=== PATIENT | female | born 1960 | race African-American/Black ===

== ENCOUNTER 2018-01-29 19:03 | Emergency (ER) | payer OTHER ==
[2018-01-29 19:18] VITALS: BP 131/45; PULSE 96; TEMP 99.1; BMI 41.0
--- NOTE | 2018-01-29 19:18 | PDOC ---
Rapid Medical Evaluation Time Seen by Provider: 01/29/18 19:15 Medical Evaluation: Allergies Allergy/AdvReac Type Severity Reaction Status Date / Time doxycycline Allergy Verified 04/06/16 18:28 erythromycin base Allergy Verified 04/06/16 18:28 01/29/18 19:15 I have performed a brief in-person evaluation of this patient. The patient presents with a chief complaint of: cough, sore throat, headache x2 days Pertinent physical exam findings: EOMI. PERRLA. Lungs CTAB. Tonsils absent I have ordered the following: cxr The patient will proceed to the ED for further evaluation. Discharge Disposition - Diagnosis Pharyngitis - Referrals - Patient Instructions - Post Discharge Activity
--- NOTE | 2018-01-29 20:02 | PDOC ---
History of Present Illness - General Chief Complaint: Cold Symptoms Stated Complaint: HEAD PAIN Time Seen by Provider: 01/29/18 19:15 History Source: Patient Exam Limitations: No Limitations - History of Present Illness Initial Comments: 01/29/18 19:56 57-year-old female presents to the ED with complaints of sore throat secondary to dry hacking cough, nasal congestion, and subjective chills. 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 Patient denies smoking history difficulty swallowing, abdominal pain, diarrhea, or recent change in diet. Timing/Duration: reports: yesterday Severity: reports: moderate Possible Cause: Yes: no prior episodes Modifying Factors: improves with: coughing Associated Symptoms: reports: cough, fever/chills, sinus infection, sore throat Past History - Travel Traveled outside of the country in the last 30 days: No - Past Medical History Allergies/Adverse Reactions: Allergies Allergy/AdvReac Type Severity Reaction Status Date / Time doxycycline Allergy Verified 01/29/18 19:18 erythromycin base Allergy Verified 01/29/18 19:18 ibuprofen Allergy Verified 01/29/18 19:18 Tetracyclines Allergy Verified 01/29/18 19:18 Home Medications: Ambulatory Orders Losartan Potassium 100 mg PO ASDIR 01/29/18 Simvastatin 10 mg PO ASDIR 01/29/18 Anemia: Yes (blood transfussion) COPD: No HTN: Yes (no meds) Hypercholesterolemia: Yes Thyroid Disease: Yes - Surgical History Abdominal Surgery: Yes (hernia as a child) - Suicide/Smoking/Psychosocial Hx Smoking History: Never smoked Have you smoked in the past 12 months: No Hx Alcohol Use: No Drug/Substance Use Hx: No Substance Use Type: None Patient Lives Alone: No Review of Systems - Review of Systems Able to Perform ROS?: No Constitutional: Yes: Chills HEENTM: Yes: Throat Pain Respiratory: Yes: Cough Cardiac (ROS): No: Symptoms Reported ABD/GI: No: Symptoms Reported : No: Symptoms Reported Musculoskeletal: No: Symptoms Reported Integumentary: No: Symptoms Reported Neurological: No: Symptoms reported *Physical Exam - Vital Signs Last Vital Signs Temp Pulse Resp BP Pulse Ox 99.1 F 96 H 18 131/45 99 01/29/18 19:14 01/29/18 19:14 01/29/18 19:14 01/29/18 19:14 01/29/18 19:14 - Physical Exam General Appearance: Yes: Nourished, Appropriately Dressed. No: Apparent Distress HEENT: positive: EOMI, BRENDA, TMs Normal, Pharynx Normal, Nasal Congestion, Rhinorrhea (clear). negative: Pale Conjunctivae Neck: positive: Normal Thyroid, Supple Respiratory/Chest: positive: Lungs Clear, Normal Breath Sounds. negative: Respiratory Distress, Accessory Muscle Use Cardiovascular: positive: Regular Rhythm, Regular Rate. negative: Murmur Integumentary: positive: Normal Color, Warm, Moist Neurologic: positive: Motor Strength 5/5 (ambulatory) Medical Decision Making - Medical Decision Making 01/29/18 20:00 Patient with URI symptoms and had a chest x-ray done which is negative for acute findings. Patient with dry hacking cough. Patient will be given azithromycin for treatment of bronchitis along with Claritin for decongestion. *DC/Admit/Observation/Transfer Diagnosis at time of Disposition: Pharyngitis, URI (upper respiratory infection) - Discharge Dispostion Disposition: HOME Condition at time of disposition: Good - Referrals Referrals: Levon Billings MD [Primary Care Provider] - - Patient Instructions Printed Discharge Instructions: DI for Acute Bronchitis Additional Instructions: Please stay well-hydrated drinking plenty of fluids. Please take medication as prescribed. May take Motrin or Tylenol for discomfort. - Post Discharge Activity
== END 2018-01-29 20:03 | disposition home or self-care (01) ==
LOC: JERFT 19:03
DX: J02.9 Acute pharyngitis, unspecified (principal); J06.9 Acute upper respiratory infection, unspecified; I10 Essential (primary) hypertension; E78.00 Pure hypercholesterolemia, unspecified; D64.9 Anemia, unspecified; E07.9 Disorder of thyroid, unspecified
CPT/HCPCS: 71046-TC-FY; 99281-25

== ENCOUNTER 2018-07-08 06:59 | Emergency (ER) | payer OTHER ==
[2018-07-08 07:23] VITALS: BP 158/82; PULSE 95; TEMP 97.6; BMI 40.6
[2018-07-08] MEDS ORDERED: ACETAMINOPHEN 650 MG/20.3 ML ORAL SOLUTION (CUPS) PO ONE (07:48)
[2018-07-08] MEDS ORDERED: ACETAMINOPHEN 325 MG TABLET (FP) PO ONE (07:52)
--- NOTE | 2018-07-08 07:55 | PDOC ---
History of Present Illness - General History Source: Patient Exam Limitations: No Limitations - History of Present Illness Initial Comments: 07/08/18 08:18 Patient is a 58-year-old female who presents to the emergency department today with right foot pain. Patient states her pain started last night after getting off work. Patient works as a BUSINESS EDUCATION TEACHER. She states that the pain is right below her third toe on the sole of the foot. Denies trauma or falling. She admits to having foot fungus. Denies fevers, chills, numbness and tingling to the extremity, weakness to the extremity. <Lori Ochoa - Last Filed: 07/09/18 08:38> <Dinorah Brand - Last Filed: 07/10/18 07:32> - General Chief Complaint: Pain Stated Complaint: R FOOT PAIN Time Seen by Provider: 07/08/18 07:25 Past History - Past Medical History Anemia: Yes (blood transfussion) COPD: No HTN: Yes (no meds) Hypercholesterolemia: Yes Thyroid Disease: Yes - Surgical History Abdominal Surgery: Yes (hernia as a child) - Suicide/Smoking/Psychosocial Hx Smoking History: Never smoked Have you smoked in the past 12 months: No Hx Alcohol Use: No Drug/Substance Use Hx: No Substance Use Type: None <Lori Ochoa - Last Filed: 07/09/18 08:38> <Dinorah Brand - Last Filed: 07/10/18 07:32> - Past Medical History Allergies/Adverse Reactions: Allergies Allergy/AdvReac Type Severity Reaction Status Date / Time amoxicillin Allergy Verified 07/08/18 07:44 doxycycline Allergy Verified 01/29/18 19:18 erythromycin base Allergy Verified 01/29/18 19:18 ibuprofen Allergy Verified 01/29/18 19:18 Tetracyclines Allergy Verified 01/29/18 19:18 Home Medications: Ambulatory Orders Acetaminophen [Tylenol] 650 mg PO Q4H #30 capsule 07/08/18 Aspirin [ASA -] 81 mg PO DAILY 07/08/18 Atorvastatin Calcium [Lipitor] 10 mg PO HS 07/08/18 Cholecalciferol (Vitamin D3) [Vitamin D3 -] 400 unit PO DAILY 07/08/18 Lisinopril/Hydrochlorothiazide [Lisinopril-Hctz 10-12.5 mg Tab] 1 each PO DAILY 07/08/18 Review of Systems - Review of Systems Able to Perform ROS?: Yes Comments:: 07/08/18 07:48 CONSTITUTIONAL: Absent: fever, chills, diaphoresis, generalized weakness, malaise, loss of appetite HEENT: Absent: rhinorrhea, nasal congestion, throat pain, throat swelling, difficulty swallowing, mouth swelling, ear pain, eye pain, visual Changes CARDIOVASCULAR: Absent: chest pain, loss of consciousness, palpitations, irregular heart rate, peripheral edema RESPIRATORY: Absent: cough, shortness of breath, dyspnea with exertion, orthopnea, wheezing, stridor, hemoptysis GASTROINTESTINAL: Absent: abdominal pain, abdominal distension, nausea, vomiting, diarrhea, constipation, melena, hematochezia GENITOURINARY: Absent: dysuria, frequency, urgency, hesitancy, hematuria, flank pain, genital pain MUSCULOSKELETAL: Present: R foot pain Absent: myalgia, arthralgia, joint swelling SKIN: Absent: rash, itching, pallor HEMATOLOGIC/IMMUNOLOGIC: Absent: easy bleeding, easy bruising, lymphadenopathy, frequent infections ENDOCRINE: Absent: unexplained weight gain, unexplained weight loss, heat intolerance, cold intolerance NEUROLOGIC: Absent: headache, focal weakness or paresthesias, dizziness, unsteady gait, seizure, mental status changes, bladder or bowel incontinence PSYCHIATRIC: Absent: anxiety, depression, suicidal or homicidal ideation, hallucinations. Is the patient limited [place] proficient: No <Lori Ochoa - Last Filed: 07/09/18 08:38> *Physical Exam - Vital Signs Last Vital Signs Temp Pulse Resp BP Pulse Ox 97.6 F 95 H 16 158/82 98 07/08/18 07:22 07/08/18 07:22 07/08/18 07:22 07/08/18 07:22 07/08/18 07:22 - Physical Exam Comments: 07/08/18 07:48 GENERAL: Well developed, well nourished. Awake and alert. No acute distress. MUSCULOSKELETAL TTP to the base of the 3rd R toe on the sole of the foot. No obvious bony tenderness. pt able to fully flex and extend all toes. No ttp of the R arch. Normal range of motion at all joints. No bony deformities or tenderness. No CVA tenderness. EXTREMITIES: No cyanosis. No clubbing. No edema. No calf tenderness. SKIN: Fungus present to the R foot between all toes and affecting the toe nails as well. No obvious erythema. Warm and dry. Normal capillary refill. No jaundice. NEUROLOGICAL: Alert, awake, appropriate. Cranial nerves 2-12 intact. No deficits to light touch and temperature in face, upper extremities and lower extremities. No motor deficits in the in face, upper extremities and lower extremities. Normoreflexic in the upper and lower extremities. Normal speech. Toes are down- going bilaterally. Gait is normal without ataxia. PSYCHIATRIC: Cooperative. Good eye contact. Appropriate mood and affect. <Lori Ochoa - Last Filed: 07/09/18 08:38> - Vital Signs Last Vital Signs Temp Pulse Resp BP Pulse Ox 97.6 F 95 H 16 158/82 98 07/08/18 07:22 07/08/18 07:22 07/08/18 07:22 07/08/18 07:22 07/08/18 07:22 <Dinorah Brand - Last Filed: 07/10/18 07:32> Moderate Sedation - Procedure Monitoring Vital Signs: Procedure Monitoring Vital Signs Temperature 97.6 F 07/08/18 07:22 Pulse Rate 95 H 07/08/18 07:22 Respiratory Rate 16 07/08/18 07:22 Blood Pressure 158/82 07/08/18 07:22 O2 Sat by Pulse Oximetry (%) 98 07/08/18 07:22 <Lori Ochoa - Last Filed: 07/09/18 08:38> - Procedure Monitoring Vital Signs: Procedure Monitoring Vital Signs Temperature 97.6 F 07/08/18 07:22 Pulse Rate 95 H 07/08/18 07:22 Respiratory Rate 16 07/08/18 07:22 Blood Pressure 158/82 07/08/18 07:22 O2 Sat by Pulse Oximetry (%) 98 07/08/18 07:22 <Dinorah Brand - Last Filed: 07/10/18 07:32> ED Treatment Course - RADIOLOGY Radiology Studies Ordered: Category Date Time Status FOOT-RIGHT [RAD] Stat Radiology 07/08/18 07:25 Completed - Medications Given in the ED: ED Medications Discontinued Medications Generic Name Dose Route Start Last Admin Trade Name Freq PRN Reason Stop Dose Admin Acetaminophen 650 mg 07/08/18 07:48 07/08/18 08:49 Tylenol Oral Solution - PO 07/08/18 07:49 Not Given ONCE ONE Acetaminophen 650 mg 07/08/18 07:52 07/08/18 08:49 Tylenol - PO 07/08/18 07:53 650 mg ONCE ONE Administration <Dinorah Brand - Last Filed: 07/10/18 07:32> Medical Decision Making - Medical Decision Making 07/08/18 10:38 Pt presents with one day of R foot pain. Pt denies trauma -x-ray is negative for fracture; no deformity on exam -Pt with athletes foot -dc home with Tylenol and podiatry follow up -I discussed the physical exam findings, ancillary test results and final diagnoses with the patient. I answered all of the patient's questions. The patient was satisfied with the care received and felt comfortable with the discharge plan and treatment plan. The Patient agrees to follow up with the primary care physician/specialist within 24-72 hours. Return precautions were given. <Lori Ochoa - Last Filed: 07/09/18 08:38> - Medical Decision Making The patient was seen and evaluated in conjunction with midlevel provider under my direct supervision, ancillary studies were reviewed. I agree with the plan as outlined by MYRANDA Ochoa. HPI as outlined. 07/10/18 07:32 <Dinorah Brand - Last Filed: 07/10/18 07:32> *DC/Admit/Observation/Transfer - Discharge Dispostion Decision to Admit order: No <Lori Ochoa - Last Filed: 07/09/18 08:38> <Dinorah Brand - Last Filed: 07/10/18 07:32> Diagnosis at time of Disposition: Foot pain, right - Discharge Dispostion Disposition: HOME Condition at time of disposition: Stable - Prescriptions Prescriptions: Acetaminophen [Tylenol] 650 mg PO Q4H #30 capsule - Referrals Referrals: Levon Billings MD [Primary Care Provider] - Abby Cadena DPM [Staff Physician] - Juventino Hills MD [Staff Physician] - - Patient Instructions Printed Discharge Instructions: DI for Foot Pain Additional Instructions: You were evaluated for your foot pain today. Your x-ray was negative for broken bones. Review to have foot fungus which may be a cause of your pain. This could also be a nerve problem. Please follow-up with a public weigher. 2 referrals have been provided. Please take Tylenol 650 mg every 4 hours as needed for pain. Do not take more than 4000 mg a day. Follow-up with her primary care doctor this week. Return to the emergency department if you have any new or worsening symptoms. - Post Discharge Activity Forms/Work/School Notes: Back to Work
[2018-07-08] MEDS ORDERED: ACETAMINOPHEN 325 MG TABLET (FP) ONE (08:02)
== END 2018-07-08 10:02 | disposition home or self-care (01) ==
LOC: JER 06:59
DX: B35.3 Tinea pedis (principal); I10 Essential (primary) hypertension; E78.00 Pure hypercholesterolemia, unspecified; D64.9 Anemia, unspecified; E07.9 Disorder of thyroid, unspecified
CPT/HCPCS: 73630-TC-RT-FY; 99282-25

== ENCOUNTER 2019-08-03 13:53 | Emergency (ER) | payer OTHER ==
[2019-08-03 14:27] VITALS: TEMP 97.6; BMI 42.5
[2019-08-03] MEDS ORDERED: ACETAMINOPHEN 325 MG TABLET (FP) PO ONE (14:40)
[2019-08-03] MEDS ORDERED: LIDOCAINE 5% TOPICAL PATCH TP ONE (14:41)
--- NOTE | 2019-08-03 14:43 | PDOC ---
History of Present Illness - General Chief Complaint: Head/Neck problem Stated Complaint: FALL Time Seen by Provider: 08/03/19 14:00 - History of Present Illness Initial Comments: 08/03/19 14:43 59 yo F PMH HTN, HLD, athlete's foot, presenting after fall. Patient states that she was walking around [employer], tripped on a crack in the pavement, and fell. States that she caught herself with her hands, hit her L knee, then hit her R head. Denies LOC. Further denies preceding presyncopal symptoms, dizziness, lightheadedness, CP, SOB, abdominal pain, fevers/chills. Complains of mild L knee pain and point tenderness of R head. Further complains about pain in her R neck muscles, exacerbated by looking to the right. Notes that she has had welling in her R middle finger for multiple years. States that she has had chronic intermittent visual issues over the past year with occasional blurry spots in her L eye. Did not have this preceding the fall and does not have it now. Has not seen anyone for this. Past History - Past Medical History Allergies/Adverse Reactions: Allergies Allergy/AdvReac Type Severity Reaction Status Date / Time amoxicillin Allergy Verified 07/08/18 07:44 doxycycline Allergy Verified 01/29/18 19:18 erythromycin base Allergy Verified 01/29/18 19:18 ibuprofen Allergy Verified 01/29/18 19:18 Tetracyclines Allergy Verified 01/29/18 19:18 Home Medications: Ambulatory Orders Acetaminophen [Tylenol] 650 mg PO Q4H #30 capsule 07/08/18 Aspirin [ASA -] 81 mg PO DAILY 07/08/18 Atorvastatin Calcium [Lipitor] 10 mg PO HS 07/08/18 Cholecalciferol (Vitamin D3) [Vitamin D3 -] 400 unit PO DAILY 07/08/18 Lisinopril/Hydrochlorothiazide [Lisinopril-Hctz 10-12.5 mg Tab] 1 each PO DAILY 07/08/18 Anemia: Yes (blood transfussion) COPD: No HTN: Yes (no meds) Hypercholesterolemia: Yes Thyroid Disease: Yes - Surgical History Abdominal Surgery: Yes (hernia as a child) - Immunization History Immunization Up to Date: Yes - Psycho Social/Smoking Cessation Hx Smoking History: Never smoked Have you smoked in the past 12 months: No Hx Alcohol Use: No Drug/Substance Use Hx: No Substance Use Type: None Review of Systems - Review of Systems Comments:: 08/03/19 14:48 GENERAL/CONSTITUTIONAL: No fever or chills. No weakness. HEAD, EYES, EARS, NOSE AND THROAT: No change in vision. No ear pain or discharge. No sore throat. CARDIOVASCULAR: No chest pain or shortness of breath. RESPIRATORY: No cough, wheezing, or hemoptysis. GASTROINTESTINAL: No nausea, vomiting, diarrhea or constipation. GENITOURINARY: No dysuria, frequency, or change in urination. MUSCULOSKELETAL: No joint or muscle swelling or pain. R neck pain. No back pain. SKIN: No rash NEUROLOGIC: No headache, vertigo, loss of consciousness, or change in strength/ sensation. ENDOCRINE: No increased thirst. No abnormal weight change. HEMATOLOGIC/LYMPHATIC: No anemia, easy bleeding, or history of blood clots. ALLERGIC/IMMUNOLOGIC: No hives or skin allergy *Physical Exam - Vital Signs Last Vital Signs Temp Pulse Resp BP Pulse Ox 97.6 F 80 18 150/79 98 08/03/19 13:58 08/03/19 13:58 08/03/19 13:58 08/03/19 13:58 08/03/19 13:58 - Physical Exam 08/03/19 14:49 Gen: well-developed, well-nourished, NAD Neuro: AAOX4, CN II-XII intact, FTN intact, EOMI, PERRLA, 5/5 strength, SILT HEENT: normocephalic, dry mucous membranes. Point tenderness along anterior R parietal skull without laceration, abrasion, or swelling. Neck: trachea midline, supple, R neck muscular tenderness CV: regular rate, regular rhythm, no murmurs, rubs, or gallops Pulm: CTA b/l, no wheezing Abd: soft, non-distended, non-tender MSK: full ROM, intact pulses Extr: no edema, no deformities. Noticeable edema in R middle finger between PIP and DIP. Skin: warm, dry. Mild abrasions above L knee. Visual Acuity L eye: 20/25 R eye: 20/30 Medical Decision Making - Medical Decision Making 08/03/19 14:50 Patient presenting with history consistent with mechanical fall. No neurological symptoms, no LOC. Low concern for brain bleed or fracture. - Tylenol 650mg - Lidoderm patch - reassess, likely dc for further outpatient management. Rec optho f/u. 08/03/19 16:33 CT head with R scalp swelling, otherwise unremarkable. Discharge - Discharge Information Problems reviewed: Yes Clinical Impression/Diagnosis: Fall Qualifiers: Encounter type: initial encounter Qualified Code(s): W19.XXXA - Unspecified fall, initial encounter Neck muscle strain Qualifiers: Encounter type: initial encounter Qualified Code(s): S16.1XXA - Strain of muscle, fascia and tendon at neck level, initial encounter - Follow up/Referral Referrals: Levon Billings MD [Primary Care Provider] - Stevan Perkins MD [Staff Physician] - - Patient Discharge Instructions Patient Printed Discharge Instructions: How to Prevent Falls Additional Instructions: You were seen after tripping and falling. Your CT scan showed some local right scalp swelling, but no other acute issues. However, you did tell us that you have been experiencing occasional blurry vision for the past year. We recommend that you see an data review specialist; a number is included in your paperwork. Follow up with your primary care doctor within one week. Return to the ED if you develop worsening symptoms. - Post Discharge Activity Work/Back to School Note: Back to Work
[2019-08-03] MEDS ORDERED: ACETAMINOPHEN 325 MG TABLET (FP) ONE (15:01)
[2019-08-03] MEDS ORDERED: LIDOCAINE 5% TOPICAL PATCH ONE (15:01)
--- NOTE | 2019-08-03 15:09 | PDOC ---
Documentation entered by Sonny Alejandro SCRIBE, acting as scribe for Keily Bates DO. Keily Bates DO: This documentation has been prepared by the Javon salinas Andrys, SCRIBE, under my direction and personally reviewed by me in its entirety. I confirm that the documentation accurately reflects all work, treatment, procedures, and medical decision making performed by me. Attending Attestation - Resident Resident Name: Nicolas Latif - ED Attending Attestation I have performed the following: I have examined & evaluated the patient, The case was reviewed & discussed with the resident, I agree w/resident's findings & plan, Exceptions are as noted - HPI HPI: 08/03/19 15:03 The patient is a 59 year old female with a significant past medical history of HTN, HLD, DM and anemia who presents to the ED, via EMS, who presents to the ED s/p fall earlier today. Patient states she tripped on a crack on the sidewalk when she fell and landed on her hands. She states she hit her head and left knee. Denies loss of consciousness and was able to ambulate after fall. Upon arrival to the ED, patient reports head pain that is worsened on the right alevism area. Patient has intermittent blurred vision on the right eye for a year. Denies weakness. Denies lightheadedness or weakness. Denies any other symptoms. - Physicial Exam PE: 08/03/19 15:03 Constitutional: + Obese. Awake, alert, oriented. No acute distress. Head: Normocephalic. No external signs of trauma. Eyes: PERRLA. EOMI. Conjunctivae are not pale. ENT: Mucous membranes are moist and intact. Posterior pharynx without exudates or erythema. Uvula midline. Neck: Supple. Full ROM. No lymphadenopathy. No middle tenderness. Cardiovascular: Regular rate. Regular rhythm. S1, S2 regular. Distal pulses are 2+ and symmetric. Pulmonary/Chest: No evidence of respiratory distress. Clear to auscultation bilaterally No wheezing, rales or rhonchi. Abdominal: Soft and non-distended. There is no tenderness. No rebound, guarding or rigidity. No organomegaly. No palpable masses. Good bowel sounds. Back: No CVA tenderness. Musculoskeletal: + Right middle sigit has a chronic fluid collection which plastic surgeon is meant to drain. No edema. No cyanosis. No clubbing. Full range of motion in all extremities. Nocalf tenderness. Radial/pedal pulses are intact and 2+ bilaterally Skin: Skin is warm and dry. No petechiae. No purpura. Neurological: Alert and oriented to person, place, and time. Cranial nerves II -XII are grossly intact. Normal speech. Strength is grossly symmetric. No sensory deficits. Psychiatric: Good eye contact. Normal interaction, affect and behavior. - Medical Decision Making 08/03/19 15:05 a/p: 59yo female with fall - head injury and intermittent blurred vision -pt with mechanical trip and fall -states for months she has had intermittent cloudiness to L eye -told her PMD who recommended she see ophtho- pt has not followed up -pt states tripped over the cracked sidewalk -pt c/o smith -no loc -lateral neck pain -no midline ttp -will give tylenol for pain -will send for head ct -neuro intact 08/03/19 16:50 no acute intracranial abnl stable for dc to home
[2019-08-03 17:31] VITALS: BP 162/99; PULSE 68
[2019-08-03] MEDS ORDERED: LIDOCAINE PATCH REMOVAL MC SCH (22:00)
== END 2019-08-03 17:32 | disposition home or self-care (01) ==
LOC: JER 13:53
DX: S16.1XXA Strain of muscle, fascia and tendon at neck level, initial encounter (principal); W18.39XA Other fall on same level, initial encounter; Y93.89 Activity, other specified; Y92.410 Unspecified street and highway as the place of occurrence of the external cause; Z88.8 Allergy status to other drugs, medicaments and biological substances; D64.9 Anemia, unspecified; E78.00 Pure hypercholesterolemia, unspecified; I10 Essential (primary) hypertension; E07.9 Disorder of thyroid, unspecified
CPT/HCPCS: 70450-TC; 99282-25

== ENCOUNTER 2019-08-18 23:48 | Emergency (ER) | payer OTHER ==
[2019-08-18 23:59] VITALS: TEMP 98.9; BMI 42.5
--- NOTE | 2019-08-19 00:40 | PDOC ---
History of Present Illness - General Chief Complaint: Cold Symptoms Stated Complaint: SOB Time Seen by Provider: 08/19/19 00:40 Past History - Past Medical History Allergies/Adverse Reactions: Allergies Allergy/AdvReac Type Severity Reaction Status Date / Time amoxicillin Allergy Verified 07/08/18 07:44 doxycycline Allergy Verified 01/29/18 19:18 erythromycin base Allergy Verified 01/29/18 19:18 ibuprofen Allergy Verified 01/29/18 19:18 Tetracyclines Allergy Verified 01/29/18 19:18 Home Medications: Ambulatory Orders Acetaminophen [Tylenol] 650 mg PO Q4H #30 capsule 07/08/18 Aspirin [ASA -] 81 mg PO DAILY 07/08/18 Atorvastatin Calcium [Lipitor] 10 mg PO HS 07/08/18 Cholecalciferol (Vitamin D3) [Vitamin D3 -] 400 unit PO DAILY 07/08/18 Lisinopril/Hydrochlorothiazide [Lisinopril-Hctz 10-12.5 mg Tab] 1 each PO DAILY 07/08/18 Anemia: Yes (blood transfussion) COPD: No HTN: Yes (no meds) Hypercholesterolemia: Yes Thyroid Disease: Yes - Surgical History Abdominal Surgery: Yes (hernia as a child) - Immunization History Immunization Up to Date: Yes - Psycho Social/Smoking Cessation Hx Smoking History: Never smoked Have you smoked in the past 12 months: No Hx Alcohol Use: No Drug/Substance Use Hx: No Substance Use Type: None *Physical Exam - Vital Signs Last Vital Signs Temp Pulse Resp BP Pulse Ox 98.9 F 114 H 22 H 175/130 H 98 08/18/19 23:56 08/18/19 23:56 08/18/19 23:56 08/18/19 23:56 08/18/19 23:56 Discharge - Follow up/Referral Referrals: Valerie Sanchez [Primary Care Provider] - - Patient Discharge Instructions - Post Discharge Activity
--- NOTE | 2019-08-19 00:42 | PDOC ---
Attending Attestation - Resident Resident Name: Bettina Parralaliteduardo - ED Attending Attestation I have performed the following: I have examined & evaluated the patient, The case was reviewed & discussed with the resident, I agree w/resident's findings & plan - HPI HPI: 08/19/19 02:43 see resident hpi - Physicial Exam PE: 08/19/19 02:43 agree with resident exam - Medical Decision Making 08/19/19 02:44 51-year-old female with chest pain body aches and cough Patient is influenza positive Due to patient's age and elevated blood pressure labs including troponin as well as chest x-ray will be performed We will plan for likely DC home pending results
--- NOTE | 2019-08-19 00:53 | PDOC ---
History of Present Illness - General Chief Complaint: Cold Symptoms Stated Complaint: SOB Time Seen by Provider: 08/19/19 00:40 - History of Present Illness Initial Comments: 08/19/19 03:31 HPI: 59 y/o F with hx of HTN and HLD presenting with 1.5 days of feeling unwell. She reports productive cough with green sputum, SOB, rhinorrhea, subjective fevers, body aches, pleuritic chest pain, nausea, LH, decreased PO intake. She denies sore throat, emesis, syncope, dysuria, change in BMs. She also reports inframammary pain from all the coughing. She tried theraflu, nyquil with no imrpovement. 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 PMHx: as noted above ROS: as noted SHx: Denies tobacco use; no alcohol use; no rec drugs Allergies: see chart ROS: GENERAL/CONSTITUTIONAL: +subj fever HEAD, EYES, EARS, NOSE AND THROAT: No change in vision. No ear pain or discharge. No sore throat. CARDIOVASCULAR: +chest pain and shortness of breath RESPIRATORY: +cough; no wheezing, or hemoptysis. GASTROINTESTINAL: +nausea; no vomiting, diarrhea or constipation. GENITOURINARY: No dysuria, frequency, or change in urination. MUSCULOSKELETAL: +muscle aches. SKIN: No rash NEUROLOGIC: No headache, vertigo, loss of consciousness, or change in strength/ sensation. ENDOCRINE: No increased thirst. No abnormal weight change HEMATOLOGIC/LYMPHATIC: No anemia, easy bleeding, or history of blood clots. ALLERGIC/IMMUNOLOGIC: No hives or skin allergy. PE: GENERAL: Awake, alert, and fully oriented, appears very uncomfortable HEAD: No signs of trauma, normocephalic, atraumatic EYES: EOMI, sclera anicteric, conjunctival injection BL ENT: Auricles normal inspection, hearing grossly normal, nares patent, oropharynx clear without exudates. Moist mucosa NECK: Normal ROM, no lymphadenopathy LUNGS: No increased work of breathing, symmetrical chest rise, clear to auscultation bilaterally, no wheezes, crackles or rhonchi HEART: tachycardia, regular rhythm, normal S1 and S2, no murmur, peripheral pulses 2+ and equal bilaterally. BL costal ttp inframammary ABDOMEN: Soft, nondistended, nontender, normoactive bowel sounds. No guarding, no rebound. No masses. No CVAT MUSCULOSKELETAL: Normal inspection, FROM NEUROLOGICAL: Cranial nerves II through XII grossly intact. Normal speech, normal gait, no focal sensorimotor deficits SKIN: Warm, Dry, normal turgor, no rashes or lesions noted Past History - Past Medical History Allergies/Adverse Reactions: Allergies Allergy/AdvReac Type Severity Reaction Status Date / Time amoxicillin Allergy Verified 07/08/18 07:44 doxycycline Allergy Verified 01/29/18 19:18 erythromycin base Allergy Verified 01/29/18 19:18 ibuprofen Allergy Verified 01/29/18 19:18 Tetracyclines Allergy Verified 01/29/18 19:18 Home Medications: Ambulatory Orders Acetaminophen [Tylenol] 650 mg PO Q4H #30 capsule 07/08/18 Aspirin [ASA -] 81 mg PO DAILY 07/08/18 Atorvastatin Calcium [Lipitor] 10 mg PO HS 07/08/18 Cholecalciferol (Vitamin D3) [Vitamin D3 -] 400 unit PO DAILY 07/08/18 Lisinopril/Hydrochlorothiazide [Lisinopril-Hctz 10-12.5 mg Tab] 1 each PO DAILY 07/08/18 Oseltamivir Phosphate [Tamiflu] 75 mg PO BID 5 Days #10 capsule 08/19/19 Anemia: Yes (blood transfussion) COPD: No HTN: Yes (no meds) Hypercholesterolemia: Yes Thyroid Disease: Yes - Surgical History Abdominal Surgery: Yes (hernia as a child) - Immunization History Immunization Up to Date: Yes - Psycho Social/Smoking Cessation Hx Smoking History: Never smoked Have you smoked in the past 12 months: No Hx Alcohol Use: No Drug/Substance Use Hx: No Substance Use Type: None *Physical Exam - Vital Signs Last Vital Signs Temp Pulse Resp BP Pulse Ox 98.9 F 114 H 22 H 175/130 H 98 08/18/19 23:56 08/18/19 23:56 08/18/19 23:56 08/18/19 23:56 08/18/19 23:56 ED Treatment Course - LABORATORY CBC & Chemistry Diagram: 08/19/19 02:34 08/19/19 02:34 Medical Decision Making - Medical Decision Making 08/19/19 03:37 59 y/o F with hx of HTN and HLD presenting with 1.5 days of feeling unwell and flu like symptoms as well as chest pain. HR 114 and BP 175/130, AF. PE unremarkable. Ddx acs, pna, flu, strep -cbc, cmp, trop, ekg, cxr, rapid flu, rapid strep -ivf, ofirmev, saline nebs 08/19/19 03:39 flu positive; will give tamiflu and send script to pharmacy patient feels signifciantly improved. discussed results; understands DC isntructions; no other questions at this time Discharge - Discharge Information Problems reviewed: Yes Clinical Impression/Diagnosis: Influenza Condition: Improved Disposition: HOME - Additional Discharge Information Prescriptions: Oseltamivir Phosphate [Tamiflu] 75 mg PO BID 5 Days #10 capsule - Follow up/Referral Referrals: Valerie Sanchez [Primary Care Provider] - - Patient Discharge Instructions Patient Printed Discharge Instructions: DI for Influenza -- Adult Additional Instructions: Additional Instructions: Please return to the emergency department with any new or worsening symptoms or concerns. Please follow up with your primary care physician within 72 hours. Tamiflu has been sent to the pharmacy; please twice a day for 5 days. Please ensure adequate hydration and nutrition. You may take tylenol 650mg every 6-8 hours and motrin 600mg every 6-8 hours for pain control - Post Discharge Activity Work/Back to School Note: Back to Work
[2019-08-19] MEDS ORDERED: SODIUM CHLORIDE 1,000 ML IV STA (01:35)
[2019-08-19] MEDS ORDERED: ACETAMINOPHEN 1000 MG/100 ML VIAL (NON FORMULARY) IVPB ONE (01:35)
[2019-08-19] MEDS ORDERED: SODIUM CHLORIDE FOR INHALATION 3 ML VIAL.NEB IH ONE (02:04)
[2019-08-19] MEDS ORDERED: ACETAMINOPHEN INJECTION 100 ML IVPB ONE (02:25)
[2019-08-19 03:16] LABS: BASO % 0.7 % (0-2.0); EOS % 0.2 % (0-4.5); HEMOGLOBIN 14.1 GM/dL (10.7-15.3); LYMPH % 16.9 % (8-40); MCH 29.5 pg (25.7-33.7); MCHC 33.5 g/dl (32.0-36.0); MEAN CELL VOLUME 88.3 fl (80-96); MEAN PLT VOLUME 11.3 fl (7.5-11.1); MONO % 14.4 % (3.8-10.2); NEUT % 67.8 % (42.8-82.8); PLATELET COUNT 154 K/MM3 (134-434); RBC 4.76 M/mm3 (3.60-5.2); WHITE BLOOD COUNT 5.3 K/mm3 (4.0-10.0)
[2019-08-19] MEDS ORDERED: OSELTAMIVIR PHOSPHATE 75 MG CAPSULE PO ONE (03:32)
[2019-08-19] MEDS ORDERED: OSELTAMIVIR PHOSPHATE 75 MG CAPSULE ONE (03:33)
[2019-08-19 03:50] LABS: ALK PHOS 83 U/L (45-117); ANION GAP 5 MMOL/L (8-16); BILIRUBIN,TOTAL 0.4 mg/dL (0.2-1); BLOOD UREA NITROGEN 11.7 mg/dL (7-18); CALCIUM 8.8 mg/dL (8.5-10.1); CHLORIDE 105 mmol/L (98-107); CO2 27 mmol/L (21-32); CREATININE 0.9 mg/dL (0.55-1.3); GLUCOSE,RANDOM 101 mg/dL (74-106); POTASSIUM 4.2 mmol/L (3.5-5.1); SGOT/AST 31 U/L (15-37); SGPT/ALT 30 U/L (13-61); SODIUM 137 mmol/L (136-145); TOT PROT 7.1 g/dl (6.4-8.2)
[2019-08-19 04:20] VITALS: BP 160/110; PULSE 98
--- NOTE | 2019-08-19 11:51 | EKG ---
Test Reason : Blood Pressure : / mmHG Vent. Rate : 103 BPM Atrial Rate : 103 BPM P-R Int : 152 ms QRS Dur : 078 ms QT Int : 352 ms P-R-T Axes : 061 044 -12 degrees QTc Int : 461 ms SINUS TACHYCARDIA WITH PREMATURE SUPRAVENTRICULAR COMPLEXES POSSIBLE LEFT ATRIAL ENLARGEMENT T WAVE ABNORMALITY, CONSIDER INFERIOR ISCHEMIA ABNORMAL ECG NO PREVIOUS ECGS AVAILABLE Confirmed by JOSESITO BOOTH MD ([id number]) on 08/19/2019 11:51:19 AM Referred By: Confirmed By:JOSESITO BOOTH MD
== END 2019-08-19 04:28 | disposition home or self-care (01) ==
LOC: JER 23:48
PROC: 3E033NZ Introduction of Analgesics, Hypnotics, Sedatives into Peripheral Vein, Percutaneous Approach (ICD-10-PCS; principal; 2019-08-18)
PROC: 3E0F7GC Introduction of Other Therapeutic Substance into Respiratory Tract, Via Natural or Artificial Opening (ICD-10-PCS; 2019-08-18)
DX: J10.1 Influenza due to other identified influenza virus with other respiratory manifestations (principal); I10 Essential (primary) hypertension; E07.9 Disorder of thyroid, unspecified; E78.00 Pure hypercholesterolemia, unspecified
CPT/HCPCS: 36415; 71046-TC-FY; 80053; 82550; 82553; 84484; 85025; 87070; 87804; 87880; 93005; 93010; 99284-25; J0131; J7030

== ENCOUNTER 2020-11-01 03:28 | Emergency (ER) | payer OTHER ==
[2020-11-01 04:41] VITALS: BP 170/89; PULSE 91; TEMP 98.4; BMI 42.3
[2020-11-01] MEDS ORDERED: oxyCODONE HCL 5 MG TABLET PO ONE (04:42)
[2020-11-01] MEDS ORDERED: oxyCODONE HCL 5 MG TABLET ONE (05:00)
== END 2020-11-01 05:28 | disposition home or self-care (01) ==
LOC: JER 03:28
DX: K08.89 Other specified disorders of teeth and supporting structures (principal)
CPT/HCPCS: 99283-25

== ENCOUNTER 2021-01-22 20:41 | Observation (INO) | payer OTHER ==
[2021-01-22 20:53] VITALS: BMI 41.3
[2021-01-22] MEDS ORDERED: LIDOCAINE 5% TOPICAL PATCH TP ONE (21:32)
[2021-01-22] MEDS ORDERED: ASPIRIN 81 MG CHEWABLE TABLETS PO ONE (21:34)
[2021-01-22] MEDS ORDERED: LIDOCAINE PATCH REMOVAL MC SCH (22:00)
[2021-01-22] MEDS ORDERED: ASPIRIN 81 MG CHEWABLE TABLETS ONE (22:09)
[2021-01-22] MEDS ORDERED: LIDOCAINE 5% TOPICAL PATCH ONE (22:10)
[2021-01-22 22:29] LABS: BASO % 0.8 % (0-2.0); EOS % 1.4 % (0-4.5); HEMATOCRIT 42.2 % (32.4-45.2); HEMOGLOBIN 13.8 GM/dL (10.7-15.3); LYMPH % 45.3 % (8-40); MCH 29.2 pg (25.7-33.7); MCHC 32.5 g/dl (32.0-36.0); MEAN CELL VOLUME 89.6 fl (80-96); MEAN PLT VOLUME 11.2 fl (7.5-11.1); MONO % 7.1 % (3.8-10.2); NEUT % 45.4 % (42.8-82.8); PLATELET COUNT 180 10^3/uL (134-434); RBC 4.72 M/mm3 (3.60-5.2); RDW 14.7 % (11.6-15.6); WHITE BLOOD COUNT 5.8 K/mm3 (4.0-10.0)
[2021-01-22 22:37] LABS: INR 0.88 (0.83-1.09); PROTHROMBIN TIME (PATIENT) 10.9 SEC (9.7-13.0)
[2021-01-22 22:47] LABS: CHLORIDE 110 mmol/L (98-107); SODIUM 143 mmol/L (136-145)
[2021-01-22 22:49] LABS: ALBUMIN 3.9 g/dl (3.4-5.0); ANION GAP 8 MMOL/L (8-16); BLOOD UREA NITROGEN 17.6 mg/dL (7-18); CALCIUM 9.1 mg/dL (8.5-10.1); CO2 24 mmol/L (21-32)
[2021-01-22 22:50] LABS: GLUCOSE,RANDOM 90 mg/dL (74-106)
[2021-01-22 22:52] LABS: SGPT/ALT 22 U/L (13-61)
[2021-01-22 22:53] LABS: CREATININE 0.8 mg/dL (0.55-1.3); SGOT/AST 20 U/L (15-37)
[2021-01-22 22:54] LABS: BILIRUBIN,TOTAL 0.4 mg/dL (0.2-1); TOT PROT 7.2 g/dl (6.4-8.2)
[2021-01-22 22:55] LABS: ALK PHOS 112 U/L (45-117)
[2021-01-22] MEDS ORDERED: FAMOTIDINE 20 MG/50 ML IVPB 20 MG/50 ML MG IVPB ONE (23:09)
[2021-01-22] MEDS ORDERED: morphine CARPU-JECT 4 MG/1 ML DISP.SYRIN IVPUSH ONE (23:16)
[2021-01-23] MEDS ORDERED: morphine SULFATE 4 MG/ML VIAL ONE (00:03)
[2021-01-23] MEDS ORDERED: FAMOTIDINE 20 MG/50 ML IVPB 20 MG/50 ML MG IVPB ONE (00:19)
[2021-01-23] MEDS ORDERED: LISINOPRIL 20 MG TABLET PO SCH (03:17)
[2021-01-23] MEDS ORDERED: LISINOPRIL 20 MG TABLET ONE (05:18)
[2021-01-23] MEDS ORDERED: KETOROLAC TROMETHAMINE 30 MG/1 ML VIAL IM ONE (05:36)
[2021-01-23] MEDS ORDERED: KETOROLAC TROMETHAMINE 15 MG/ML VIAL ONE (05:39)
[2021-01-23] MEDS ORDERED: MORPHINE SULFATE 2 MG/ML VIAL IVPUSH ONE (05:45)
[2021-01-23 06:29] LABS: BASO % 0.9 % (0-2.0); HEMATOCRIT 40.7 % (32.4-45.2); HEMOGLOBIN 13.3 GM/dL (10.7-15.3); LYMPH % 45.2 % (8-40); MCH 29.3 pg (25.7-33.7); MCHC 32.6 g/dl (32.0-36.0); MEAN CELL VOLUME 89.8 fl (80-96); MONO % 8.3 % (3.8-10.2); NEUT % 44.6 % (42.8-82.8); PLATELET COUNT 168 10^3/uL (134-434); RBC 4.53 M/mm3 (3.60-5.2); RDW 15.2 % (11.6-15.6); WHITE BLOOD COUNT 4.3 K/mm3 (4.0-10.0)
[2021-01-23 06:42] LABS: ANION GAP 8 MMOL/L (8-16); BLOOD UREA NITROGEN 15.7 mg/dL (7-18); CALCIUM 8.7 mg/dL (8.5-10.1); CHLORIDE 110 mmol/L (98-107); CO2 24 mmol/L (21-32); GLUCOSE,RANDOM 90 mg/dL (74-106); MAGNESIUM 2.3 mg/dL (1.8-2.4); SODIUM 142 mmol/L (136-145)
[2021-01-23 06:43] LABS: ALBUMIN 3.8 g/dl (3.4-5.0)
[2021-01-23 06:45] LABS: SGPT/ALT 20 U/L (13-61)
[2021-01-23 06:46] LABS: CREATININE 0.7 mg/dL (0.55-1.3); PHOSPHOROUS 3.4 mg/dL (2.5-4.9); SGOT/AST 10 U/L (15-37)
[2021-01-23 06:47] LABS: BILIRUBIN,TOTAL 0.4 mg/dL (0.2-1); TOT PROT 6.6 g/dl (6.4-8.2)
[2021-01-23 06:48] LABS: ALK PHOS 91 U/L (45-117)
[2021-01-23] MEDS ORDERED: INSULIN SLIDING SCALE (NOVOLOG) 1 VIAL SQ SCH (07:00)
[2021-01-23 07:22] VITALS: TEMP 97.6
[2021-01-23 08:29] LABS: CHOLESTEROL 244 mg/dL (50-200)
[2021-01-23 08:30] LABS: LDL CHOLESTEROL (ONLY SJRH) 142 mg/dL (5-100)
[2021-01-23 08:31] LABS: TRIGLYCERIDES 101 mg/dL (0-150)
[2021-01-23 08:40] LABS: HDL CHOLESTEROL 59 mg/dL (40-60)
[2021-01-23] MEDS ORDERED: HYDROCHLOROTHIAZIDE 12.5 MG CAPSULE (FP) PO SCH (10:00)
[2021-01-23] MEDS ORDERED: ASPIRIN 81 MG CHEWABLE TABLETS PO SCH (10:00)
[2021-01-23] MEDS ORDERED: ENOXAPARIN NA (PORCINE) 40 MG/0.4 ML DISP.SYRIN SQ SCH (10:00)
[2021-01-23] MEDS ORDERED: ASPIRIN 81 MG CHEWABLE TABLETS ONE (10:50)
[2021-01-23] MEDS ORDERED: PT OWN MED DRAWER 7, Y5N ONE (10:51)
[2021-01-23 12:12] VITALS: BP 143/71; PULSE 52
[2021-01-23] MEDS ORDERED: ATORVASTATIN CA 10 MG TABLET (FP) PO SCH (22:00)
== END 2021-01-23 12:11 | disposition home or self-care (01) ==
LOC: JER 20:41 → INTOOBSV 21:50 → JERBED 21:50
PROVIDERS: ADMIT Internal Medicine; ATTEND Internal Medicine
PROC: 3E033GC Introduction of Other Therapeutic Substance into Peripheral Vein, Percutaneous Approach (ICD-10-PCS; principal; 2021-01-22)
PROC: 3E023GC Introduction of Other Therapeutic Substance into Muscle, Percutaneous Approach (ICD-10-PCS; 2021-01-22)
DX: R07.89 Other chest pain (principal); I10 Essential (primary) hypertension; E78.5 Hyperlipidemia, unspecified; E11.9 Type 2 diabetes mellitus without complications; E66.01 Morbid (severe) obesity due to excess calories; Z68.41 Body mass index [BMI] 40.0-44.9, adult; Z88.0 Allergy status to penicillin; Z88.1 Allergy status to other antibiotic agents; Z88.6 Allergy status to analgesic agent; Z79.82 Long term (current) use of aspirin; Z72.89 Other problems related to lifestyle
CPT/HCPCS: 36415; 71046-TC-FY; 71275-TC; 80053; 80061; 82550; 83036; 83721; 83735; 84100; 84443; 84484; 85025; 85610; 93005; 93010; 96365; 96372; 96375; 99285-25; C9803; G0378; U0003; U0005

== ENCOUNTER 2021-05-03 18:31 | Emergency (ER) | payer OTHER ==
[2021-05-03 18:43] VITALS: BP 157/89; PULSE 87; TEMP 98.4; BMI 41.8
[2021-05-03] MEDS ORDERED: oxyCODONE HCL 5 MG TABLET PO ONE (20:21)
[2021-05-03] MEDS ORDERED: DIPHTH,PERTUSS(ACELL),TET 0.5 ML DISP.SYRIN IM ONE ×2 (20:21→20:35)
[2021-05-03] MEDS ORDERED: SULFAMETHOXAZOLE/TRIMETHOPRIM 800MG/160MG D.S. TABLET PO ONE (20:21)
[2021-05-03] MEDS ORDERED: oxyCODONE HCL 5 MG TABLET ONE (20:34)
[2021-05-03] MEDS ORDERED: SULFAMETHOXAZOLE/TRIMETHOPRIM 800MG/160MG D.S. TABLET ONE (20:34)
== END 2021-05-03 20:47 | disposition home or self-care (01) ==
LOC: JERFT 18:31
PROC: 3E0234Z Introduction of Serum, Toxoid and Vaccine into Muscle, Percutaneous Approach (ICD-10-PCS; principal; 2021-05-03)
DX: S61.451A Open bite of right hand, initial encounter (principal); W55.01XA Bitten by cat, initial encounter
CPT/HCPCS: 90471; 90715; 99284-25

== ENCOUNTER 2022-05-09 10:41 | Emergency (ER) | payer OTHER ==
[2022-05-09 11:27] VITALS: BP 132/66; PULSE 80; RESP 17; TEMP 98.3; BMI 41.3
[2022-05-09] MEDS ORDERED: FOLIC ACID INJECTION - 1 MG, THIAMINE HCL 100 MG, MULTIVIT INJECTION ADULT 10 ML in SOD... IVPB ONE (12:26)
[2022-05-09] MEDS ORDERED: ACETAMINOPHEN 1000 MG/100 ML BAG IVPB ONE (12:27)
[2022-05-09] MEDS ORDERED: ACETAMINOPHEN INJECTION 100 ML IVPB ONE (13:30)
[2022-05-09 13:52] LABS: BASO % 1.5 % (0-2.0); EOS % 1.1 % (0-4.5); HEMATOCRIT 43.4 % (32.4-45.2); HEMOGLOBIN 14.3 GM/dL (10.7-15.3); LYMPH % 48.8 % (8-40); MCH 29.4 pg (25.7-33.7); MCHC 32.9 g/dl (32.0-36.0); MEAN CELL VOLUME 89.6 fl (80-96); MEAN PLT VOLUME 11.2 fl (7.5-11.1); MONO % 6.8 % (3.8-10.2); NEUT % 41.8 % (42.8-82.8); PLATELET COUNT 213 10^3/uL (134-434); RBC 4.85 M/mm3 (3.60-5.2); RDW 13.8 % (11.6-15.6); WHITE BLOOD COUNT 5.5 K/mm3 (4.0-10.0)
[2022-05-09 14:24] LABS: URINE APPEARANCE CLEAR; URINE BILIRUBIN NEGATIVE (NEGATIVE); URINE COLOR YELLOW; URINE GLUCOSE (UA) NEGATIVE (NEGATIVE); URINE KETONE NEGATIVE (NEGATIVE); URINE LEUK ESTERASE NEGATIVE (NEGATIVE); URINE NITRITE NEGATIVE (NEGATIVE); URINE PROTEIN NEGATIVE (NEGATIVE); URINE UROBILINOGEN 0.2 mg/dL (0.2-1.0)
[2022-05-09 14:32] LABS: ALBUMIN 4.1 g/dl (3.4-5.0); BILIRUBIN,TOTAL 0.4 mg/dL (0.2-1); BLOOD UREA NITROGEN 14.2 mg/dL (7-18); CALCIUM 9.6 mg/dL (8.5-10.1); CREATININE 0.7 mg/dL (0.55-1.3); TOT PROT 7.7 g/dl (6.4-8.2)
[2022-05-09] MEDS ORDERED: ONDANSETRON 4 MG/2 ML VIAL IVPUSH ONE (14:36)
[2022-05-09] MEDS ORDERED: morphine CARPU-JECT 4 MG/1 ML DISP.SYRIN IVPUSH ONE (14:36)
[2022-05-09] MEDS ORDERED: morphine SULFATE 4 MG/ML VIAL ONE (14:37)
[2022-05-09] MEDS ORDERED: ONDANSETRON 4 MG/2 ML VIAL ONE (14:39)
== END 2022-05-09 20:20 | disposition home or self-care (01) ==
LOC: JER 10:41
PROC: 3E033NZ Introduction of Analgesics, Hypnotics, Sedatives into Peripheral Vein, Percutaneous Approach (ICD-10-PCS; principal; 2022-05-09)
PROC: 3E033GC Introduction of Other Therapeutic Substance into Peripheral Vein, Percutaneous Approach (ICD-10-PCS; 2022-05-09)
PROC: 3E033GC Introduction of Other Therapeutic Substance into Peripheral Vein, Percutaneous Approach (ICD-10-PCS; 2022-05-09)
DX: M54.50 Low back pain, unspecified (principal); R10.31 Right lower quadrant pain
CPT/HCPCS: 74177-TC; 80053; 81003; 82140; 83690; 84132; 85025; 87086; 93005; 93010; 96374; 96375; 99285-25; Q9967

== ENCOUNTER 2022-05-27 19:55 | Emergency (ER) | payer OTHER ==
[2022-05-27 20:02] VITALS: BP 116/63; PULSE 87; RESP 18; TEMP 97.4; BMI 40.8
[2022-05-27] MEDS ORDERED: ACETAMINOPHEN 500 MG TABLET (FP) PO ONE (21:41)
[2022-05-27] MEDS ORDERED: ACETAMINOPHEN 325 MG TABLET (FP) ONE ×2 (21:45)
== END 2022-05-27 23:43 | disposition home or self-care (01) ==
LOC: JER 19:55
DX: S09.90XA Unspecified injury of head, initial encounter (principal); M25.522 Pain in left elbow; M25.552 Pain in left hip; W10.9XXA Fall (on) (from) unspecified stairs and steps, initial encounter
CPT/HCPCS: 70450-TC; 72125-TC; 72170-TC-FY; 73030-TC-LT-FY; 73060-TC-LT-FY; 73070-TC-LT-FY; 73502-TC-LT-FY; 99285-25

== ENCOUNTER 2025-01-10 08:15 | Inpatient (IN) | payer OTHER ==
[2025-01-10 08:40] VITALS: BMI 43.7
[2025-01-10] MEDS ORDERED: BISMUTH SUBSALICYLATE 262 MG/15 ML BTL PO PRN (08:54)
[2025-01-10] MEDS ORDERED: BENZOCAINE/MENTHOL (CHLORASEPTIC ) LOZENGE MM PRN (08:54)
[2025-01-10] MEDS ORDERED: guaiFENesin 600 MG TABLET.ER (FP) PO PRN (08:54)
[2025-01-10] MEDS ORDERED: DICYCLOMINE HCL 10 MG CAPSULE PO PRN (08:54)
[2025-01-10] MEDS ORDERED: BENZONATATE 200 MG CAPSULE PO PRN (08:54)
[2025-01-10] MEDS ORDERED: ACETAMINOPHEN 325 MG TABLET (FP) PO PRN (08:54)
[2025-01-10] MEDS ORDERED: IBUPROFEN 600 MG TABLET (FP) PO PRN (08:54)
[2025-01-10] MEDS ORDERED: NALOXONE (NARCAN) HCL 4 MG/0.1 ML SPRAY NS PRN (08:54)
[2025-01-10] MEDS ORDERED: MAG HYDROX/AL HYDROX/SIMETH 30 ML UNIT-DOSE CUP PO PRN (08:54)
[2025-01-10] MEDS ORDERED: LOPERAMIDE HCL 2 MG CAPSULE PO PRN (08:54)
[2025-01-10] MEDS ORDERED: ONDANSETRON *ODT* 4 MG TABLET SL PRN (08:54)
[2025-01-10] MEDS ORDERED: POLYETHYLENE GLYCOL (HEALTHYLAX) 3350 17 GM PACKET PO PRN (08:54)
[2025-01-10] MEDS ORDERED: IBUPROFEN 400 MG TABLET (FP) PO PRN (08:54)
[2025-01-10] MEDS ORDERED: amLODIPine BESYLATE 5 MG TABLET (FP) ONE (09:57)
[2025-01-10] MEDS ORDERED: LORazepam 1 MG TABLET ONE (09:58)
[2025-01-10] MEDS ORDERED: PRENATAL VITAMINS W/ FOLIC ACID TABLET (FP) PO ONE (09:58)
[2025-01-10] MEDS: PRENATAL VITAMINS W/ FOLIC ACID TABLET (FP) PO SCH (10:03)
[2025-01-10] MEDS: amLODIPine BESYLATE 10 MG TABLET (FP) PO SCH (10:03)
[2025-01-10] MEDS: LORazepam 1 MG TABLET PO SCH (10:03)
[2025-01-10] MEDS: FLUTICASONE PROP 0.05% 16 GM NASAL SPRAY NS SCH (11:48)
[2025-01-10] MEDS: NALTREXONE HCL 50 MG TABLET PO ONE (11:51)
[2025-01-10] MEDS: FAMOTIDINE 20 MG TABLET PO SCH (11:51)
[2025-01-10] MEDS: GABAPENTIN 100 MG CAPSULE PO SCH (13:25)
[2025-01-10] MEDS: hydrOXYzine PAMOATE 25 MG CAPSULE (FP) PO PRN (17:04)
[2025-01-10] MEDS: hydrALAZINE HCL 25 MG TABLET (FP) PO ONE (21:49)
[2025-01-10] MEDS: THIAMINE 100 MG TABLET PO SCH (21:49)
[2025-01-10] MEDS: METHOCARBAMOL 500 MG TABLET PO PRN (21:50)
[2025-01-10] MEDS: ATORVASTATIN CA 10 MG TABLET (FP) PO SCH (21:50)
[2025-01-10] MEDS: MIRTAZAPINE 15 MG TABLET (FP) PO SCH (21:50)
[2025-01-10] MEDS: LORazepam 1 MG TABLET PO PRN (21:51)
[2025-01-10] MEDS: MELATONIN 5 MG TABLETS PO SCH (21:52)
[2025-01-11] MEDS: NALTREXONE HCL 50 MG TABLET PO SCH (09:55)
[2025-01-11] MEDS: ALBUTEROL SO4 HFA INHALER IH PRN (09:56)
[2025-01-11 11:21] LABS: HEMATOCRIT 43.6 % (34.1-44.9); HEMOGLOBIN 13.9 g/dL (11.2-15.7); MCHC 31.9 g/dl (32.2-35.5); MEAN CELL VOLUME 92.8 fl (79.4-94.8); MEAN PLT VOLUME 12.1 fl (9.4-12.3); PLATELET COUNT 194 x10^3/uL (182-369)
[2025-01-11 11:25] LABS: POTASSIUM 3.8 mmol/L (3.5-5.1)
[2025-01-11 11:35] LABS: ALBUMIN 3.9 g/dl (3.4-5.0); BLOOD UREA NITROGEN 11.4 mg/dL (7-18); CALCIUM 9.8 mg/dL (8.5-10.1)
[2025-01-11 11:37] LABS: BILIRUBIN,TOTAL 0.4 mg/dL (0.2-1)
[2025-01-11 11:39] LABS: CREATININE 0.9 mg/dL (0.55-1.3)
[2025-01-11] MEDS: MAGNESIUM HYDROX 2400MG/30ML ORAL SUSPENSION 30 ML CUP PO PRN (17:30)
[2025-01-12] MEDS ORDERED: LORazepam 0.5 MG TABLET PO PRN
[2025-01-12] MEDS: LORazepam 1 MG TABLET PO SCH (06:00)
[2025-01-12] MEDS: METOPROLOL TARTRATE 50 MG TABLET (FP) PO ONE (22:41)
[2025-01-13] MEDS: LORazepam 0.5 MG TABLET PO SCH ×2 (06:13→06:14)
[2025-01-13] MEDS ORDERED: LORazepam 0.5 MG TABLET PO SCH (06:15)
[2025-01-14 09:25] VITALS: BP 144/85; PULSE 88; RESP 16; TEMP 97.7
== END 2025-01-14 10:18 | disposition home or self-care (01) | DRG 775 ==
LOC: YASAS 08:15 → Y6N 09:19
PROVIDERS: ADMIT Family Medicine; ATTEND Psychiatry & Neurology Pain Medicine
PROC: HZ2ZZZZ Detoxification Services for Substance Abuse Treatment (ICD-10-PCS; principal; 2025-01-10)
DX: F10.230 Alcohol dependence with withdrawal, uncomplicated (principal); F16.20 Hallucinogen dependence, uncomplicated; F19.282 Other psychoactive substance dependence with psychoactive substance-induced sleep disorder; F43.10 Post-traumatic stress disorder, unspecified; G62.9 Polyneuropathy, unspecified; G47.00 Insomnia, unspecified; I10 Essential (primary) hypertension; K21.9 Gastro-esophageal reflux disease without esophagitis; Z87.891 Personal history of nicotine dependence; Z88.0 Allergy status to penicillin; Z88.1 Allergy status to other antibiotic agents; Z88.8 Allergy status to other drugs, medicaments and biological substances
CPT/HCPCS: 36415; 80053; 80305; 80307; 83036; 85027; 86593; 86780; 90853; 93005; 93010; T1023